=== PATIENT | male | born 1975 | race Caucasian/White ===

== ENCOUNTER 2016-11-20 20:29 | Emergency (ER) | payer SELFPAY ==
--- NOTE | ~2016-11-20 | EKG ---
PATIENT: DANNIELLE SALAS UNIT #: [id number] Ventricular Rate: 83 BPM Atrial Rate: 83 BPM P-R Interval: 130 ms QRS Duration: 86 ms Q-T Interval: 350 ms QTC Calculation(Bezet): 411 ms P [place]: 43 degrees Calculated R [place]: -22 degrees Calculated T [place]: 46 degrees Diagnosis Line: Normal sinus rhythm Diagnosis Line: Poor R wave progression questionable lead position Diagnosis Line: or body habitus Otherwise normal ECG Diagnosis Line: When compared with ECG of 24-JUN-2016 14:35, Diagnosis Line: No significant change was found Diagnosis Line: Confirmed by MATTI PARR MD ([id number]) on 11/24/2016 Diagnosis Line: 5:35:04 PM INTERPRETING MD: KAROLYN SHERWOOD
[2016-11-20 20:17] LABS: BASOPHIL% 0.5 % (0-2.5); EOSINOPHIL% 0.6 % (0.0-7.0); HEMATOCRIT 50.7 % (38.0-50.0); HEMOGLOBIN 17.4 gm/dL (13.0-16.0); LYMPHOCYTE# 1.9 X10e3 (1.0-3.5); LYMPHOCYTE% 30.7 % (17.0-45.0); MEAN CELL VOLUME 94.9 FL (83-96); MEAN CORPUSCULAR HEMOGLOBIN 32.5 PG (28-34); MEAN CORPUSCULAR HGB CONC 34.3 g/dL (30-36); MEAN PLATELET VOLUME 7.6 FL (6.5-11.5); MONOCYTE# 0.5 X10e3 (0-1.0); MONOCYTE% 8.4 % (3.0-12.0); NEUTROPHIL# 3.7 X10e3 (1.5-7.1); NEUTROPHIL% 59.8 % (40-75); PLATELET COUNT 195 X10e3 (140-420); RED BLOOD COUNT 5.35 X10e (3.90-5.60); WHITE BLOOD COUNT 6.2 X10e3 (4.0-10.5)
[2016-11-20 20:18] LABS: DIFF IND NO
[2016-11-20 20:28] LABS: POC - MYOGLOBIN 99.9 ng/mL (0.0-169.0); POC - TROPONIN <0.05 ng/mL (<=0.05)
[~2016-11-20 20:29] MED LIST: BACTRIM DS TABL1 TA1 PO; FAMOTIDINE PO; NO MEDICATIONS; PREDNISONE PO; PREDNISONE10 MG/DOSE PO
[2016-11-20 20:33] LABS: ALBUMIN SERUM 4.5 g/dL (3.5-5.0); ALKALINE PHOSPHATASE 115 U/L (32-92); ALT (SGPT) 35 U/L (10-40); AST (SGOT) 24 U/L (10-42); BILIRUBIN, DIRECT 0.2 mg/dL (0.0-0.2); BILIRUBIN,INDIRECT 0.7 mg/dL (0.0-0.9); BILIRUBIN,TOTAL 0.9 mg/dL (0.2-2.0); BLOOD UREA NITROGEN 12 mg/dL (9-23); CALCIUM SERUM 9.3 mg/dL (8.4-10.2); CARBON DIOXIDE 29 mmol/L (22-31); CHLORIDE 101 mmol/L (100-111); GLOM FILT RATE Estimated ABOVE60 mL/min (>60); GLUCOSE FASTING 83 mg/dL (70-110); POTASSIUM 3.8 mmol/L (3.5-5.1); PROTEIN TOTAL SERUM 7.3 g/dL (6.0-8.3); SODIUM 137 mmol/L (135-145)
[2016-11-20] MEDS ORDERED: ZESTRIL10 M1 PO (21:18)
== END 2016-11-20 21:23 | disposition home or self-care (01) ==
LOC: SED 20:29
PROVIDERS: Emergency Medicine
DX: R00.2 Palpitations (principal); I10 Essential (primary) hypertension; Z88.2 Allergy status to sulfonamides; Z88.8 Allergy status to other drugs, medicaments and biological substances; Z79.899 Other long term (current) drug therapy; Z87.891 Personal history of nicotine dependence
CPT/HCPCS: 36415; 80048; 80076; 82553; 83874; 84443; 84484; 85025; 93005; 99283